=== PATIENT | female | born 1965 | race Caucasian/White ===

== ENCOUNTER 2016-05-20 12:39 | Emergency (ER) | payer OTHER ==
[~2016-05-20] VITALS: Ht 172.7 cm; Wt 79.2 kg
[~2016-05-20 12:39] MED LIST: CLINDAMYCIN HC300 MG PO; FLEXERIL10 MG PO; LORTAB 5-325 M1 EACH PO; NORCO 5/3251 TABLET PO; PERCOCET 5/31 TABLET PO; PREDNISONE10 MG PO; ULTRAM50 MG PO; VALIUM10 MG PO; VALIUM5 MG PO
[2016-05-20 12:53] VITALS: BP 109/62
== END 2016-05-20 14:44 | disposition home or self-care (01) ==
LOC: EME 12:39
DX: Z77.21 Contact with and (suspected) exposure to potentially hazardous body fluids (principal); Z72.0 Tobacco use
CPT/HCPCS: 80048; 80076; 84702; 85025; 86703; 86706; 86803; 99281; 99283

== ENCOUNTER 2016-06-02 13:50 | Emergency (ER) | payer OTHER ==
[~2016-06-02] VITALS: Ht 172.7 cm; Wt 79.4 kg
[2016-06-02] MEDS ORDERED: ANTIVERT25 MG PO (15:40)
[2016-06-02 16:09] VITALS: BP 109/66
== END 2016-06-02 16:11 | disposition home or self-care (01) ==
LOC: EME 13:50
DX: R42 Dizziness and giddiness (principal); R51 Headache
CPT/HCPCS: 99281; 99284; J1885

== ENCOUNTER 2016-08-19 14:25 | Emergency (ER) | payer OTHER ==
[~2016-08-19] VITALS: Ht 172.7 cm; Wt 79.0 kg
[~2016-08-19 14:25] MED LIST changes: +ANTIVERT25 MG PO
[2016-08-19 15:13] LABS: HEMATOCRIT 37.7 % (36.0-46.0); MCH 30.1 PG (29.0-34.0); MCHC 33.4 G/DL (30.0-36.0); MEAN PLAT.VOLUME 9.9 uM^3 (9.5-12.4); PLATELET COUNT 298 K/uL (156-360); RBC DIS.WIDTH-SD 42.8 % (39-53); RED BLOOD COUNT 4.19 M/uL (3.80-5.20); WHITE BLOOD COUNT 9.9 K/uL (4.1-10.2)
[2016-08-19 15:26] LABS: CHLORIDE 105 mEq/L (99-109); POTASSIUM 3.4 mEq/L (3.7-5.4); SODIUM 136 mEq/L (136-147)
[2016-08-19 15:28] LABS: GLUCOSE 80 mg/dL (70-99)
[2016-08-19 15:29] LABS: ANION GAP 8 MEQ/L (2-14)
[2016-08-19 15:31] LABS: GFR ESTIMATE (CALCULATED) > 59 mL/min/
[2016-08-19 15:32] LABS: UREA NITROGEN (BUN) 17 mg/dL (9-23)
[2016-08-19 15:36] LABS: TROP-I INTERPRETATION NEGATIVE; TROPONIN-I < 0.01 ng/mL (0.0-0.30)
[2016-08-19 15:57] LABS: QUANTITATIVE HCG < 4.0 MIU/ML
[2016-08-19 19:17] LABS: TROP-I INTERPRETATION NEGATIVE; TROPONIN-I < 0.01 ng/mL (0.0-0.30)
[2016-08-19 19:45] VITALS: BP 112/80
== END 2016-08-19 20:01 | disposition home or self-care (01) ==
LOC: EME 14:25
PROVIDERS: Physician Assistant
DX: R07.9 Chest pain, unspecified (principal); F17.200 Nicotine dependence, unspecified, uncomplicated; Z82.49 Family history of ischemic heart disease and other diseases of the circulatory system
CPT/HCPCS: 71020; 71275; 80048; 84484; 84702; 85027; 93005; 99281; 99285; J2060; J7030

== ENCOUNTER 2017-01-03 13:30 | Emergency (ER) | payer OTHER ==
[~2017-01-03] VITALS: Ht 172.7 cm; Wt 78.2 kg
[2017-01-03] MEDS ORDERED: NAPROSYN500 MG PO (14:53)
[2017-01-03 15:10] VITALS: BP 119/75
== END 2017-01-03 15:16 | disposition home or self-care (01) ==
LOC: EME 13:30
DX: S49.91XA Unspecified injury of right shoulder and upper arm, initial encounter (principal); W01.198A Fall on same level from slipping, tripping and stumbling with subsequent striking against other object, initial encounter; Y92.009 Unspecified place in unspecified non-institutional (private) residence as the place of occurrence of the external cause
CPT/HCPCS: 73030; 99281; 99283; J1885